=== PATIENT | male | born 1980 | race Two or more races ===

== ENCOUNTER 2016-07-25 14:14 | Emergency (ER) | payer OTHER ==
[~2016-07-25 14:14] MED LIST: ASPIRIN EC325 MG PO; KEFLEX500 MG/CA1 PO; NORCO 5-325 TA1 EACH PO; OXYCODONE/APAP PO; PERCOCET 5/3251 TAB PO; PERCOCET 5MG/AP1 TA1 PO; PHENERGAN25 MG PO
== END 2016-07-25 16:25 ==
LOC: EDMED 14:14
DX: H57.8 Other specified disorders of eye and adnexa (principal)